=== PATIENT | female | born 1955 | race Caucasian/White ===

== ENCOUNTER 2016-11-30 20:16 | Emergency (ER) | payer BC ==
--- NOTE | 2016-11-30 23:18 | DIAGNOSTIC IMAGING REPORT ---
PROCEDURE: CT ABD/PELVIS WITH CONTRAST INDICATION: Left abdominal pain. History of cholecystectomy and hysterectomy. TECHNIQUE: 125 ml of Isovue 300 were injected intravenously and axial images were obtained of the entire abdomen and pelvis with sagittal and coronal reformations. COMPARISON: None. FINDINGS: ABDOMEN: Cholecystectomy (surgical clips). Liver, spleen, pancreas, kidneys, and aorta are normal. Bowel pattern is normal. Appendix is not clearly identified, but no evidence of inflammatory process. Mild degenerative changes of the lumbar spine. PELVIS: Moderate inflammatory changes of the upper sigmoid colon superimposed on moderate diverticulosis of. No evidence of fluid collection or abscess. Status post hysterectomy. IMPRESSION: 1. Moderate inflammatory changes of the upper sigmoid colon superimposed on moderate diverticulosis. Findings are most compatible with acute diverticulitis. 2. Status post cholecystectomy and hysterectomy. 3. Findings discussed with Dr. Reed Rhodes. All CT scans at this facility use dose modulation, iterative reconstruction, and/or weight-based dosing when appropriate to reduce radiation dose to as low as reasonably achievable.
--- NOTE | 2016-12-01 00:02 | ED CLINICAL REPORT ---
Clinical Report - Physicians/Mid Levels [facility] [address] [place] [address] 11/30/2016 20:21 Patient: RUFINO STEELE Time Seen: 21:11. Arrived- By private vehicle. Historian- patient. HISTORY OF PRESENT ILLNESS Chief Complaint: ABDOMINAL PAIN. It is described as stabbing and cramping and it is described as located in the left lower quadrant and radiating to the low back. At its maximum, severity described as 10 / 10. When seen in the E.D., severity described as 3 / 10. Modifying factors. Not worsened by anything. Not relieved by anything. This started several days ago and is still present. It was abrupt in onset and has been intermittent and waxing/waning. No nausea, loss of appetite, vomiting or diarrhea. No recent travel. Similar symptoms previously: None. REVIEW OF SYSTEMS Last bowel movement: today- "it was loose and grainy". She has had chills. No fever, sweats, calf pain, chest pain or cough. No difficulty breathing, pedal edema, palpitations, black stools or bloody stools. No constipation or urinary problems. She has had dizziness described as vertiginous in quality (chronically). All systems otherwise negative, except as recorded above. PAST HISTORY PCP - Vasyl. Problems: Hypercholesterolemia. Additional Surgeries: Cholecystectomy. Hysterectomy. Shoulder Surgery. Medications: Atorvastatin Calcium Oral. Allergies: Bactrim. Demerol. Penicillin. Sulfa Antibiotics. SOCIAL HISTORY Never smoker. No alcohol use or drug use. Residence: [place] Is a local resident. FAMILY HISTORY Diabetes in first-degree relative (mother, father and sibling); premature onset heart disease in first-degree relative (mother and sibling); cancer in first-degree relative (father and sibling). ADDITIONAL NOTES The nursing notes have been reviewed. PHYSICAL EXAM Vital Signs: 11/30/2016 21:10 BP: 136/60. HR: 79. RR: 16. O2 saturation: 99%. Temp: 98 F. Pain level now: 4/10. Have been reviewed. Appearance: Alert. Eyes: Pupils equal, round and reactive to light. ENT: Pharynx normal. Neck: Normal inspection. Neck supple. CVS: Normal heart rate and rhythm. Heart sounds normal. Respiratory: No respiratory distress. Breath sounds normal. Abdomen: Soft and nontender. Bowel sounds normal. No organomegaly. No mass. Back: Normal inspection. Skin: Skin warm and dry. Normal skin color. Normal skin turgor. Extremities: Extremities exhibit normal ROM. No calf tenderness. No lower extremity edema. LABS, X-RAYS, AND EKG Abdominal CT: IMPRESSION: 1. Moderate inflammatory changes of the upper sigmoid colon superimposed on moderate diverticulosis. Findings are most compatible with acute diverticulitis. 2. Status post cholecystectomy and hysterectomy. The study was interpreted contemporaneously by me and discussed with the radiologist. Laboratory Tests: UA-Culture if indicated: (BARBIE: 11/30/2016 21:15) ( MsgRcvd 11/30/2016 21:59) Final results Test Result Flag Units (Reference) URINE COLOR YELLOW URINE APPEARANCE CLEAR URINE GLUCOSE NEGATIVE (NEGATIVE) URINE BILIRUBIN NEGATIVE (NEGATIVE) URINE KETONE NEGATIVE (NEGATIVE) URINE SPECIFIC GRAVITY 1.020 (1.010-1.030) URINE PH 5.5 (5.0-8.0) URINE PROTEIN NEGATIVE (NEGATIVE) URINE UROBILINOGEN 0.2 EU/dL (0.2-1.0) URINE NITRITE NEGATIVE (NEGATIVE) URINE BLOOD TRACE-INTACT (NEGATIVE) URINE LEUK ESTERASE NEGATIVE (NEGATIVE) URINE RBC 1-3 rbc/hpf (0-1) URINE WBC 1-3 wbc/hpf (0-1) URINE EPITHELIAL CELLS 0-1 EPI/hpf (0-5) URINE BACTERIA TRACE (<1+) (NONE SEEN) URINE COMMENT CULT NOT INDICATED 1+ MUCOUSURINE CULTURES ARE SET-UP BASED ON THE FOLLOWING CRITERIA:POSITIVE NITRITEPOSITIVE LEUKOCYTE ESTERASEGREATER THAN 10 WHITE BLOOD CELLSMODERATE (2+) OR GREATER BACTERIA CBC w Diff: (BARBIE: 11/30/2016 21:20) ( AlgRcvd 11/30/2016 21:44) Final results Test Result Flag Units (Reference) WHITE BLOOD COUNT 11.6 H K/uL (4.5-11.5) RED BLOOD COUNT 4.44 M/uL (4.00-5.20) HEMOGLOBIN 13.0 gm/dL (12.0-16.0) HEMATOCRIT 39.5 % (36.0-46.0) MEAN CELL VOLUME 89 fL (80-100) MEAN CORPUSCULAR HGB 29 pg (26-34) MEAN CORPUSCULAR HGB CONC 33 g/dL (31-37) RED CELL DISTRIBUTION WIDTH 14.0 % (11.6-14.8) PLATELET COUNT 326 K/uL (150-400) NEUTROPHIL % 68.7 % (50-75) LYMPH % 23.0 L % (25-40) MONO % 6.2 % (3-14) EOSINOPHIL % 1.5 % (0-4) BASOPHIL % 0.6 % (0-2) CMP: (BARBIE: 11/30/2016 21:20) ( MsgRcvd 11/30/2016 21:50) Final results Test Result Flag Units (Reference) GLUCOSE 92 mg/dL (70-110) BUN 15 mg/dL (7-18) CREATININE 0.9 mg/dL (0.6-1.3) Estimated GFR >60 mL/min Estimated GFR- >60 mL/min Note: Persistent reduction over 3 months in eGFR<60 mL/min/1.73 m2 defines CKD. Patients with eGFR values>=60 mL/min/1.73 m2 may also have CKD if evidence ofpersistent proteinuria. Additional information may be foundat www.kidney.org. SODIUM 141 mmol/L (136-145) POTASSIUM 3.7 mmol/L (3.5-5.1) CHLORIDE 105 mmol/L (98-107) CARBON DIOXIDE 30 mmol/L (21-32) CALCIUM 9.2 mg/dL (8.5-10.1) TOTAL PROTEIN 7.7 g/dL (6.4-8.2) ALBUMIN 3.5 g/dL (3.3-5.0) BILIRUBIN, TOTAL 0.3 mg/dL (0.0-1.0) ALKALINE PHOSPHATASE 119 H U/L (46-116) AST (SGOT) 27 U/L (15-37) ALT (SGPT) 34 U/L (12-78) LIPASE 108 U/L (73-393) AMYLASE 64 U/L (25-115) . PROGRESS AND PROCEDURES Course of Care: Patient is stable. Patient/family counseled. Old medical records ordered. Old records unavailable. Disposition: Discharged. Condition: stable. CLINICAL IMPRESSION Acute diverticulitis. INSTRUCTIONS No driving or operating machinery while taking medication. Drink plenty of fluids. Warnings: Further evaluation is necessary. SEDATIVE MEDICATION: You were given sedative medication during your visit. Do not drive or operate dangerous machinery. GENERAL WARNINGS: Return or contact your physician immediately if your condition worsens or changes unexpectedly, if not improving as expected, or if other problems arise. Prescription Medications: Zofran 4 mg: Take 1 orally every six hours as needed for nausea/vomiting. Dispense ten (10). No refills. Substitution is permissible. Cipro 500 mg: take 1 tab orally every 12 hours for 10 days. Dispense twenty (20). No refills. Substitution is permissible. Flagyl 500 mg: Take 1 tablet orally every 8 hours for 10 days. No refill. Substitution is permissible Percocet 5 mg/325 mg: take 1 tablet orally every 6 hours as needed for pain. Dispense fifteen (15). No refills. Substitution is permissible. Follow-up: Follow up with your doctor Dr. Fallon tomorrow. Call for an appointment. Understanding of the discharge instructions verbalized by patient and family. (Electronically signed by Reed Rhodes MD 12/06/2016 2:21)
--- NOTE | 2016-12-01 00:02 | ED ORDER SUMMARY ---
..... Patient: RUFINO STEELE OrderSheet [facility] VisitID: [id number] [address] [place] [address] 61y, F Registration Date/Time: 11/30/2016 ORDER SHEET Weight: 87.5 kg Allergies: Bactrim, Penicillin, Sulfa Antibiotics, Demerol GENERAL ORDERS: CBC w Diff Urgent (21:12 11/30/2016 Socorro VELAZQUEZ) (Ack 21:14 SRedmsherman) (21:23 TBowen R.N.) CMP Urgent (21:11/30/2016 Socorro VELAZQUEZ) (Ack 21:14 SResapphire) (21:23 TBowen R.N.) UA-Culture if indicated Urgent (21:11/30/2016 Socorro VELAZQUEZ) (Ack 21:14 SResapphire) (21:23 TBowen R.N.) Amylase Urgent (21:11/30/2016 Socorro VELAZQUEZ) (Ack 21:14 SReamandeepond) (21:23 TBowen R.N.) Lipase Urgent (21:12 11/30/2016 Socorro VELAZQUEZ) (Ack 21:14 SReamandeepond) (21:23 TBowen R.N.) CT Abd/Pel w Cont (No) (See report) Urgent (22:03 11/30/2016 Socorro VELAZQUEZ) (Ack 22:16 SRedmsherman) (23:13 MCampbell) MEDICATION ORDERS: IV FLUIDS: IV Saline Lock (21:11/30/2016 Socorro VELAZQUEZ) (Ack 21:51 RCollier R.N.) IV NS : initial bolus 500 mL (1000 mL/hr), then 125 mL/hr for 4h (NOW); Urgent (22:02 11/30/2016 Socorro VELAZQUEZ) (22:22 TBowwill R.N.) Dilaudid IV 0.5 mg (HIGH ALERT MEDICATION, NOW) (22:02 11/30/2016 Socorro VELAZQUEZ) (22:22 TBowen R.N.) Zofran IV 4 mg (NOW) (22:02 11/30/2016 Socorro VELAZQUEZ) (22:22 TBowwill R.N.) Dilaudid IV 0.5 mg (HIGH ALERT MEDICATION, NOW) (23:45 11/30/2016 Socorro VELAZQUEZ) (23:52 TBowwill R.N.) Zofran IV 4 mg (NOW) (00:18 12/01/2016 Socorro VELAZQUEZ) (0:24 TBunique R.N.) ORDER SHEET NOTES: [Electronically signed by Mary Lal R.N. (00:35 12/01/2016)] [Electronically signed by Reed Rhodes MD (02:21 12/06/2016)] [Electronically locked/signed by Mary Lal R.N. (00:35 12/01/2016)]
--- NOTE | 2016-12-01 00:02 | ED NURSING NOTES ---
Clinical Report - Nurses [facility] [address] [place] [address] 11/30/2016 20:21 Patient: RUFINO STEELE TRIAGE Triage time 21:10. Acuity: LEVEL 3. Chief Complaint: ABDOMINAL PAIN. --21:13 TonyaB, R.N. 21:10 11/30/16. BP: 136/60. HR: 79. RR: 16. O2 saturation: 99%. Temp: 98 F. Pain level now: 11/20. --21:13 TonyaB, R.N. Weight: 87.5 kg. Height/Length: 60 inches. BMI: 37.7. --21:11 TonyaB, R.N. Medications Atorvastatin Calcium Oral. --21:25 TonyaB, R.N. Allergies Bactrim. --21:24 TonyaB, R.N. Penicillin. --21:24 TonyaB, R.N. Sulfa Antibiotics. --21:24 TonyaB, R.N. Demerol. --21:24 TonyaB, R.N. History Arrived by private vehicle. Historian: patient. Accompanied by family. This is a new problem and onset was gradual. (3 days ago). Last oral intake by patient was breakfast (8 hours ago). 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 PAST MEDICAL HX: Immunizations: up-to-date. The patient has had a hysterectomy. SOCIAL HX: Never smoker. No alcohol use or drug use. No recent travel. No infectious disease exposure. No known contact with a sick individual. SELF HARM ASSESSMENT: A self harm assessment was performed. The patient answered "no" to the question "Have you recently felt down, depressed, or hopeless?", "Have you noticed less interest or pleasure in doing things?", "Do you have thoughts of harming or killing yourself?", "Are you here because you tried to hurt yourself?", "Have you ever tried to hurt yourself before today?", "Have you recently had thoughts about harming or killing others?" and "Do you have any dangerous items in your possession?". FALL RISK ASSESSMENT: Fall risk assessment completed. No fall risk identified. NUTRITIONAL RISK ASSESSMENT: The nutritional risk assessment revealed no deficiencies. FUNCTIONAL ASSESSMENT: Functional assessment: no impairments noted. LEARNING NEEDS ASSESSMENT: The learning needs assessment revealed no barriers. SKIN INTEGRITY ASSESSMENT: Skin integrity risk assessment completed. No skin integrity risk identified. --: Mandi Queen PROBLEMS: Hypercholesterolemia. --: Dong Queen. ADDITIONAL SURGERIES: Cholecystectomy. Hysterectomy. Shoulder Surgery. --: Mandi Queen Interventions ID band on patient. To treatment room. --: Mandi Queen PHYSICAL ASSESSMENT Ambulatory to room. GENERAL / NEURO / PSYCH: Alert. Oriented X 4. Appears in no acute distress. HEENT: Mucous membranes are pink. RESPIRATORY: Respirations not labored. Breath sounds within normal limits. CVS: Normal sinus rhythm noted. Capillary refill less than 2 seconds. GI / : Abdomen soft. Guarding present in the left lower quadrant. Bowel sounds within normal limits. SKIN: Skin is warm and dry. --21:14 Mandi Queen NURSING PROGRESS NOTES Oxygen administered. Patient identifiers checked. Call light placed in reach. Side rails up x 1. Bed placed in lowest position. Brakes of bed on. --: Mandi Queen 11/30/2016 Site #1 started via IV in the right antecubital space with an 20g angiocath, with aseptic technique and good blood return; one attempt. Blood drawn: rainbow set. Labeled in the presence of the patient and sent to the lab. Saline lock flushed with 10 mL saline. --:24 Mandi Queen 22:11/30/2016 Started bag #1 1000 mL IV Fluids IV NS (Saline); at 999 mL/hr over 30 minute(s) via site #1 via IV pump. Allergies verified and confirmed 5 rights. IV patency established. IV site checked: no pain, redness, or swelling. IV flushed thoroughly pre- and post-medication administration. --: Mandi Queen 22:11/30/2016 Dilaudid (HYDROmorphone HCl PF) IVP 0.5 mg given. via site #1. Allergies verified, confirmed 5 rights and sedative warning given to the patient and patient's family. IV patency established. IV site checked: no pain, redness, or swelling. IV flushed thoroughly pre- and post-medication administration. IVP given by RN. --22:22 Mandi Queen 22:11/30/2016 Zofran (Ondansetron HCl) IVP 4 mg given over 2 minute(s) via site #1. Allergies verified and confirmed 5 rights. IV patency established. IV site checked: no pain, redness, or swelling. IV flushed thoroughly pre- and post-medication administration. IVP given by RN. --22:22 Mandi Queen 23:52 11/30/2016 Dilaudid (HYDROmorphone HCl PF) IVP 0.5 mg given. via site #1. Allergies verified, confirmed 5 rights and sedative warning given to the patient. IV patency established. IV site checked: no pain, redness, or swelling. IV flushed thoroughly pre- and post-medication administration. IVP given by RN. --23:52 Mandi Queen ( pt vomiting ,orders received and carried out). --00:25 Mandi Queen 00:12/01/2016 IV Fluids IV NS Discontinued: bag #1 completed upon discharge. Total amount infused: 1000 mL. IV patency established. IV site checked: no pain, redness, or swelling. IV flushed thoroughly. --00:35 Mandi Queen 00:24 12/01/2016 Zofran (Ondansetron HCl) IVP 4 mg given over 2 minute(s) via site #1. Allergies verified and confirmed 5 rights. IV patency established. IV site checked: no pain, redness, or swelling. IV flushed thoroughly pre- and post-medication administration. IVP given by RN. --00:24 Mandi Queen DISPOSITION / DISCHARGE 00:25 12/01/2016 Site #1 removed upon discharge. Catheter intact. Bandage applied. --00:25 Mandi Queen Condition at departure: improved. No learning barriers present. Discharge instructions provided and reviewed with the patient. Reviewed warnings (no driving). Reviewed medication(s) side effects, precautions, dosing and course information. Prescription(s) given to the patient. Follow up contact number with PCP. Patient verbalized understanding. Written instructions provided in Maldivian. No treatment instructions, referrals given to the patient, diet instructions, activity restrictions or note given. No stop smoking instructions. The patient was discharged by the physician. She was discharged home and accompanied by family. She left the Emergency Department ambulatory and via private vehicle. Family member driving. FALL RISK ASSESSMENT: Fall risk assessment completed. No fall risk identified. --00:26 Mandi Queen Departure time: 00:34. --00:34 Mandi Queen 00:34 12/01/16. BP: 126/72. HR: 68. RR: 16. O2 saturation: 99%. Temp: deferred. Pain level now: 0/10. --00:35 Mandi Queen Locked/Released at 12/01/2016 0:35 by Mandi Queen
--- NOTE | 2016-12-01 00:02 | ED ORDER SUMMARY ---
..... Patient: RUFINO STEELE OrderSheet [facility] VisitID: [id number] [address] [place] [address] 61y, F Registration Date/Time: 11/30/2016 ORDER SHEET Weight: 87.5 kg Allergies: Bactrim, Penicillin, Sulfa Antibiotics, Demerol GENERAL ORDERS: CBC w Diff Urgent (21:12 11/30/2016 Socorro VELAZQUEZ) (Ack 21:14 SRedmsherman) (21:23 TBowen R.N.) CMP Urgent (21:11/30/2016 Socorro VELAZQUEZ) (Ack 21:14 SResapphire) (21:23 TBowen R.N.) UA-Culture if indicated Urgent (21:11/30/2016 Socorro VELAZQUEZ) (Ack 21:14 SResapphire) (21:23 TBowen R.N.) Amylase Urgent (21:11/30/2016 Socorro VELAZQUEZ) (Ack 21:14 SReamandeepond) (21:23 TBowen R.N.) Lipase Urgent (21:12 11/30/2016 Socorro VELAZQUEZ) (Ack 21:14 SReamandeepond) (21:23 TBowen R.N.) CT Abd/Pel w Cont (No) (See report) Urgent (22:03 11/30/2016 Socorro VELAZQUEZ) (Ack 22:16 SRedmsherman) (23:13 MCampbell) MEDICATION ORDERS: IV FLUIDS: IV Saline Lock (21:11/30/2016 Socorro VELAZQUEZ) (Ack 21:51 RCollier R.N.) IV NS : initial bolus 500 mL (1000 mL/hr), then 125 mL/hr for 4h (NOW); Urgent (22:02 11/30/2016 Socorro VELAZQUEZ) (22:22 TBowwill R.N.) Dilaudid IV 0.5 mg (HIGH ALERT MEDICATION, NOW) (22:02 11/30/2016 Socorro VELAZQUEZ) (22:22 TBowen R.N.) Zofran IV 4 mg (NOW) (22:02 11/30/2016 Socorro VELAZQUEZ) (22:22 TBowwill R.N.) Dilaudid IV 0.5 mg (HIGH ALERT MEDICATION, NOW) (23:45 11/30/2016 Socorro VELAZQUEZ) (23:52 TBowwill R.N.) Zofran IV 4 mg (NOW) (00:18 12/01/2016 Socorro VELAZQUEZ) (0:24 TBunique R.N.) ORDER SHEET NOTES: [Electronically signed by Mary Lal R.N. (00:35 12/01/2016)] [Electronically signed by Reed Rhodes MD (02:21 12/06/2016)] [Electronically locked/signed by Mary Lal R.N. (00:35 12/01/2016)]
--- NOTE | 2016-12-06 02:21 | ED MAR SUMMARY ---
..... Medication Administration Record [facility] [address] [place] [address] Patient: RUFINO STEELE Visit ID: [id number] 61y, F Weight: 87.5 kg Height/Length: 60 in BMI: 37.7 ALLERGIES: Demerol, Sulfa Antibiotics, Penicillin, Bactrim Start 22:11/30/2016 Bret RDaysi., Stop 00:12/01/2016 Dong Queen. Medication Administered: IV NS (SALINE), Dose: IV Fluids over 30 minute(s), Rate: 999 mL/hr, Dispensed: 1000 mL bag, Site: #1 right AC. Medication Ordered: IV NS : initial bolus 500 mL (1000 mL/hr), then 125 mL/hr for 4h (NOW); Urgent. Given :11/30/2016 Dong Queen. Medication Administered: DILAUDID [IVP] (HYDROMORPHONE HCL PF), Dose: 0.5 mg IVP, Site: #1 right AC. Medication Ordered: Dilaudid IV 0.5 mg (HIGH ALERT MEDICATION, NOW). Given 11/30/2016 Dong Queen. Medication Administered: ZOFRAN [IVP] (ONDANSETRON HCL), Dose: 4 mg IVP over 2 minute(s), Site: #1 right AC. Medication Ordered: Zofran IV 4 mg (NOW). Given 23:52 11/30/2016 Dong Queen. Medication Administered: DILAUDID [IVP] (HYDROMORPHONE HCL PF), Dose: 0.5 mg IVP, Site: #1 right AC. Medication Ordered: Dilaudid IV 0.5 mg (HIGH ALERT MEDICATION, NOW). Given :12/01/2016 Antonia QueenN. Medication Administered: ZOFRAN [IVP] (ONDANSETRON HCL), Dose: 4 mg IVP over 2 minute(s), Site: #1 right AC. Medication Ordered: Zofran IV 4 mg (NOW).
--- NOTE | 2016-12-06 02:21 | ED DISCHARGE INSTRUCTIONS ---
Patient: RUFINO STEELE General Instructions [facility] VisitID: [id number] [place] [address] 61y, F Registration Date/Time: 11/30/2016 Acute diverticulitis. INSTRUCTIONS No driving or operating machinery while taking medication. Drink plenty of fluids. Warnings: Further evaluation is necessary. SEDATIVE MEDICATION: You were given sedative medication during your visit. Do not drive or operate dangerous machinery. GENERAL WARNINGS: Return or contact your physician immediately if your condition worsens or changes unexpectedly, if not improving as expected, or if other problems arise. Prescription Medications: Zofran 4 mg: Take 1 orally every six hours as needed for nausea/vomiting. Dispense ten (10). No refills. Substitution is permissible. Cipro 500 mg: take 1 tab orally every 12 hours for 10 days. Dispense twenty (20). No refills. Substitution is permissible. Flagyl 500 mg: Take 1 tablet orally every 8 hours for 10 days. No refill. Substitution is permissible Percocet 5 mg/325 mg: take 1 tablet orally every 6 hours as needed for pain. Dispense fifteen (15). No refills. Substitution is permissible. Follow-up: Follow up with your doctor Dr. Fallon tomorrow. Call for an appointment. Understanding of the discharge instructions verbalized by patient and family. ADDITIONAL INFORMATION Diverticulitis Some people develop pouches along the wall of the colon as they get older. The pouches,called diverticuli, usually cause no symptoms. If the pouches become blocked, an infection may occur known as diverticulitis. This causes lower abdominal pain and fever. If not treated, it can become a serious condition, causing an abscess to form inside the pouch. The abscess may block the instestinal tract even or rupture, spreading infection throughout the abdomen. When treatment is started early, oral antibiotics alone may be enough to cure diverticulitis. This method is tried first. However, if you do not improve or if your condition worsens while you are trying oral antibiotics, it will be necessary to admit you to the hospital for IV antibiotics. Severe cases may require surgery. Home care The following guidelines will help you care for your diverticulitis at home: During the acute illness, rest and follow a low-fiber diet: Foods to Include: flake cereal, mashed potatoes, pancakes, waffles, pasta, white bread, rice, applesauce, bananas, eggs, meat, fish, poultry, tofu, cooked vegetables. Take antibiotics exactly as directed. Do not miss any doses or stop taking the medication, even if you feel better. Monitor your temperature and report any rising temperature to your doctor. Preventing future attacks Once you have had an episode of diverticulitis, you are at risk of having a recurrence. After you have recovered from this episode, you may be able to reduce your risk by eating a high-fiber diet (2035 gm/day of fiber). This cleans out the colon pouches that already exist and prevent new ones from forming. Foods high in fiber includes fresh fruits and edible peelings, raw or lightly cooked vegetables, whole grain cereals and breads, dried beans and peas, bran. Follow-up care Follow up with your doctor as advised or sooner if you are not improving in the nexttwo days. When to seek medical care Get prompt medical attention if any of the following occur: Fever of 100.4F (38C) or higher, or as directed by your health care provider Repeated vomiting or swelling of the abdomen Weakness, dizziness, light-headedness Increasing abdominal pain that becomes severe or spreads to your back Pain that moves to the right lower abdomen Rectal bleeding (red, black or maroon color of the stools) Unexpected vaginal bleeding Ondansetron Oral disintegrating tablet What is this medicine? ONDANSETRON (on JOANNA se pastora) is used to treat nausea and vomiting caused by chemotherapy. It is also used to prevent or treat nausea and vomiting after surgery. How should I use this medicine? These tablets are made to dissolve in the mouth. Do not try to push the tablet through the foil backing. With dry hands, peel away the foil backing and gently remove the tablet. Place the tablet in the mouth and allow it to dissolve, then swallow. While you may take these tablets with water, it is not necessary to do so. Talk to your lumber trimmer regarding the use of this medicine in children. Special care may be needed. What side effects may I notice from receiving this medicine? Side effects that you should report to your doctor or health direct support professional caregiver as soon as possible: allergic reactions like skin rash, itching or hives, swelling of the face, lips, or tongue breathing problems dizziness fast or irregular heartbeat feeling faint or lightheaded, falls fever and chills swelling of the hands and feet tightness in the chest Side effects that usually do not require medical attention (report to your doctor or health direct support professional caregiver if they continue or are bothersome): constipation or diarrhea headache What may interact with this medicine? Do not take this medicine with any of the following medications: -apomorphine -cisapride -dofetilide -dronedarone -pimozide -thioridazine -ziprasidone This medicine may also interact with the following medications: -carbamazepine -phenytoin -rifampicin -tramadol -other medicines that prolong the QT interval (cause an abnormal heart rhythm) What if I miss a dose? If you miss a dose, take it as soon as you can. If it is almost time for your next dose, take only that dose. Do not take double or extra doses. Where should I keep my medicine? Keep out of the reach of children. Store between 2 and 30 degrees C (36 and 86 degrees F). Throw away any unused medicine after the expiration date. What should I tell my health care provider before I take this medicine? They need to know if you have any of these conditions: heart disease history of irregular heartbeat liver disease low levels of magnesium or potassium in the blood an unusual or allergic reaction to ondansetron, granisetron, other medicines, foods, dyes, or preservatives or trying to get breast-feeding What should I watch for while using this medicine? Check with your doctor or health direct support professional caregiver as soon as you can if you have any sign of an allergic reaction. Ciprofloxacin Hydrochloride Oral tablet What is this medicine? CIPROFLOXACIN (sip megan FLOX a sin) is a quinolone antibiotic. It is used to treat certain kinds of bacterial infections. It will not work for colds, flu, or other viral infections. How should I use this medicine? Take this medicine by mouth with a glass of water. Follow the directions on the prescription label. Take your medicine at regular intervals. Do not take your medicine more often than directed. Take all of your medicine as directed even if you think your are better. Do not skip doses or stop your medicine early. You can take this medicine with food or on an empty stomach. It can be taken with a meal that contains dairy or calcium, but do not take it alone with a dairy product, like milk or yogurt or calcium-fortified juice. A special MedGuide will be given to you by the pharmacist with each prescription and refill. Be sure to read this information carefully each time. Talk to your lumber trimmer regarding the use of this medicine in children. Special care may be needed. What side effects may I notice from receiving this medicine? Side effects that you should report to your doctor or health direct support professional caregiver as soon as possible: - allergic reactions like skin rash, itching or hives, swelling of the face, lips, or tongue - breathing problems - confusion, nightmares or hallucinations - feeling faint or lightheaded, falls - irregular heartbeat - joint, muscle or tendon pain or swelling - pain or trouble passing urine -persistent headache with or without blurred vision - redness, blistering, peeling or loosening of the skin, including inside the mouth - seizure - unusual pain, numbness, tingling, or weakness Side effects that usually do not require medical attention (report to your doctor or health direct support professional caregiver if they continue or are bothersome): - diarrhea - nausea or stomach upset - white patches or sores in the mouth What may interact with this medicine? Do not take this medicine with any of the following medications: cisapride droperidol terfenadine tizanidine This medicine may also interact with the following medications: antacids caffeine cyclosporin didanosine (ddI) buffered tablets or powder medicines for diabetes medicines for inflammation like ibuprofen, naproxen methotrexate multivitamins omeprazole phenytoin probenecid sucralfate theophylline warfarin What if I miss a dose? If you miss a dose, take it as soon as you can. If it is almost time for your next dose, take only that dose. Do not take double or extra doses. Where should I keep my medicine? Keep out of the reach of children. Store at room temperature below 30 degrees C (86 degrees F). Keep container tightly closed. Throw away any unused medicine after the expiration date. What should I tell my health care provider before I take this medicine? They need to know if you have any of these conditions: -bone problems -cerebral disease -joint problems -irregular heartbeat -kidney disease -liver disease -myasthenia gravis -seizure disorder -tendon problems -an unusual or allergic reaction to ciprofloxacin, other antibiotics or medicines, foods, dyes, or preservatives - or trying to get -breast-feeding What should I watch for while using this medicine? Tell your doctor or health direct support professional caregiver if your symptoms do not improve. Do not treat diarrhea with over the counter products. Contact your doctor if you have diarrhea that lasts more than 2 days or if it is severe and watery. You may get drowsy or dizzy. Do not drive, use machinery, or do anything that needs mental alertness until you know how this medicine affects you. Do not stand or sit up quickly, especially if you are an older patient. This reduces the risk of dizzy or fainting spells. This medicine can make you more sensitive to the sun. Keep out of the sun. If you cannot avoid being in the sun, wear protective clothing and use sunscreen. Do not use sun lamps or tanning beds/booths. Avoid antacids, aluminum, calcium, iron, magnesium, and zinc products for 6 hours before and 2 hours after taking a dose of this medicine. Metronidazole Oral tablet What is this medicine? METRONIDAZOLE ( troe NI da zole) is an antiinfective. It is used to treat certain kinds of bacterial and protozoal infections. It will not work for colds, flu, or other viral infections. How should I use this medicine? Take this medicine by mouth with a full glass of water. Follow the directions on the prescription label. Take your medicine at regular intervals. Do not take your medicine more often than directed. Take all of your medicine as directed even if you think you are better. Do not skip doses or stop your medicine early. Talk to your lumber trimmer regarding the use of this medicine in children. Special care may be needed. What side effects may I notice from receiving this medicine? Side effects that you should report to your doctor or health direct support professional caregiver as soon as possible: allergic reactions like skin rash or hives, swelling of the face, lips, or tongue confusion, clumsiness difficulty speaking discolored or sore mouth dizziness fever, infection numbness, tingling, pain or weakness in the hands or feet trouble passing urine or change in the amount of urine redness, blistering, peeling or loosening of the skin, including inside the mouth seizures unusually weak or tired vaginal irritation, dryness, or discharge Side effects that usually do not require medical attention (report to your doctor or health direct support professional caregiver if they continue or are bothersome): diarrhea headache irritability metallic taste nausea stomach pain or cramps trouble sleeping What may interact with this medicine? Do not take this medicine with any of the following medications: alcohol or any product that contains alcohol amprenavir oral solution cisapride disulfiram dofetilide dronedarone paclitaxel injection pimozide ritonavir oral solution sertraline oral solution sulfamethoxazole-trimethoprim injection thioridazine ziprasidone This medicine may also interact with the following medications: cimetidine lithium other medicines that prolong the QT interval (cause an abnormal heart rhythm) phenobarbital phenytoin warfarin What if I miss a dose? If you miss a dose, take it as soon as you can. If it is almost time for your next dose, take only that dose. Do not take double or extra doses. Where should I keep my medicine? Keep out of the reach of children. Store at room temperature below 25 degrees C (77 degrees F). Protect from light. Keep container tightly closed. Throw away any unused medicine after the expiration date. What should I tell my health care provider before I take this medicine? They need to know if you have any of these conditions: anemia or other blood disorders disease of the nervous system fungal or yeast infection if you drink alcohol containing drinks liver disease seizures an unusual or allergic reaction to metronidazole, or other medicines, foods, dyes, or preservatives or trying to get breast-feeding What should I watch for while using this medicine? Tell your doctor or health direct support professional caregiver if your symptoms do not improve or if they get worse. You may get drowsy or dizzy. Do not drive, use machinery, or do anything that needs mental alertness until you know how this medicine affects you. Do not stand or sit up quickly, especially if you are an older patient. This reduces the risk of dizzy or fainting spells. Avoid alcoholic drinks while you are taking this medicine and for three days afterward. Alcohol may make you feel dizzy, sick, or flushed. If you are being treated for a sexually transmitted disease, avoid sexual contact until you have finished your treatment. Your sexual partner may also need treatment. Oxycodone Hydrochloride, Acetaminophen Oral tablet What is this medicine? ACETAMINOPHEN; OXYCODONE (a set a ANJU kaylan fen; ox i KOLamont done) is a pain reliever. It is used to treat mild to moderate pain. How should I use this medicine? Take this medicine by mouth with a full glass of water. Follow the directions on the prescription label. Take your medicine at regular intervals. Do not take your medicine more often than directed. Talk to your lumber trimmer regarding the use of this medicine in children. Special care may be needed. Patients over 65 years old may have a stronger reaction and need a smaller dose. What side effects may I notice from receiving this medicine? Side effects that you should report to your doctor or health direct support professional caregiver as soon as possible: allergic reactions like skin rash, itching or hives, swelling of the face, lips, or tongue breathing difficulties, wheezing confusion light headedness or fainting spells severe stomach pain yellowing of the skin or the whites of the eyes Side effects that usually do not require medical attention (report to your doctor or health direct support professional caregiver if they continue or are bothersome): dizziness drowsiness nausea vomiting What may interact with this medicine? alcohol antihistamines barbiturates like amobarbital, butalbital, butabarbital, methohexital, pentobarbital, phenobarbital, thiopental, and secobarbital benztropine drugs for bladder problems like solifenacin, trospium, oxybutynin, tolterodine, hyoscyamine, and methscopolamine drugs for breathing problems like ipratropium and tiotropium drugs for certain stomach or intestine problems like propantheline, homatropine methylbromide, glycopyrrolate, atropine, belladonna, and dicyclomine general anesthetics like etomidate, ketamine, nitrous oxide, propofol, desflurane, enflurane, halothane, isoflurane, and sevoflurane medicines for depression, anxiety, or psychotic disturbances medicines for sleep muscle relaxants naltrexone narcotic medicines (opiates) for pain phenothiazines like perphenazine, thioridazine, chlorpromazine, mesoridazine, fluphenazine, prochlorperazine, promazine, and trifluoperazine scopolamine tramadol trihexyphenidyl What if I miss a dose? If you miss a dose, take it as soon as you can. If it is almost time for your next dose, take only that dose. Do not take double or extra doses. Where should I keep my medicine? Keep out of the reach of children. This medicine can be abused. Keep your medicine in a safe place to protect it from theft. Do not share this medicine with anyone. Selling or giving away this medicine is dangerous and against the law. Store at room temperature between 20 and 25 degrees C (68 and 77 degrees F). Keep container tightly closed. Protect from light. This medicine may cause accidental overdose and if it is taken by other adults, children, or pets. Flush any unused medicine down the toilet to reduce the chance of harm. Do not use the medicine after the expiration date. What should I tell my health care provider before I take this medicine? They need to know if you have any of these conditions: brain tumor Crohn's disease, inflammatory bowel disease, or ulcerative colitis drink more than 3 alcohol containing drinks per day drug abuse or addiction head injury heart or circulation problems kidney disease or problems going to the bathroom liver disease lung disease, asthma, or breathing problems an unusual or allergic reaction to acetaminophen, oxycodone, other opioid analgesics, other medicines, foods, dyes, or preservatives or trying to get breast-feeding What should I watch for while using this medicine? Tell your doctor or health direct support professional caregiver if your pain does not go away, if it gets worse, or if you have new or a different type of pain. You may develop tolerance to the medicine. Tolerance means that you will need a higher dose of the medication for pain relief. Tolerance is normal and is expected if you take this medicine for a long time. Do not suddenly stop taking your medicine because you may develop a severe reaction. Your body becomes used to the medicine. This does NOT mean you are addicted. Addiction is a behavior related to getting and using a drug for a non-medical reason. If you have pain, you have a medical reason to take pain medicine. Your doctor will tell you how much medicine to take. If your doctor wants you to stop the medicine, the dose will be slowly lowered over time to avoid any side effects. You may get drowsy or dizzy. Do not drive, use machinery, or do anything that needs mental alertness until you know how this medicine affects you. Do not stand or sit up quickly, especially if you are an older patient. This reduces the risk of dizzy or fainting spells. Alcohol may interfere with the effect of this medicine. Avoid alcoholic drinks. There are different types of narcotic medicines (opiates) for pain. If you take more than one type at the same time, you may have more side effects. Give your health care provider a list of all medicines you use. Your doctor will tell you how much medicine to take. Do not take more medicine than directed. Call emergency for help if you have problems breathing. The medicine will cause constipation. Try to have a bowel movement at least every 2 to 3 days. If you do not have a bowel movement for 3 days, call your doctor or health direct support professional caregiver. Do not take Tylenol (acetaminophen) or medicines that have acetaminophen with this medicine. Too much acetaminophen can be very dangerous. Many nonprescription medicines contain acetaminophen. Always read the labels carefully to avoid taking more acetaminophen. You have been given the following additional information: Diverticulitis Ondansetron Oral disintegrating tablet Ciprofloxacin Hydrochloride Oral tablet Metronidazole Oral tablet Oxycodone Hydrochloride, Acetaminophen Oral tablet No driving or operating machinery while taking medication. (Electronically signed by Reed Rhodes MD 12/06/2016 2:21)
--- NOTE | 2016-12-06 02:21 | ED MAR SUMMARY ---
..... Medication Administration Record [facility] [address] [place] [address] Patient: RUFINO STEELE Visit ID: [id number] 61y, F Weight: 87.5 kg Height/Length: 60 in BMI: 37.7 ALLERGIES: Demerol, Sulfa Antibiotics, Penicillin, Bactrim Start 22:11/30/2016 Bret RDaysi., Stop 00:12/01/2016 Dong Queen. Medication Administered: IV NS (SALINE), Dose: IV Fluids over 30 minute(s), Rate: 999 mL/hr, Dispensed: 1000 mL bag, Site: #1 right AC. Medication Ordered: IV NS : initial bolus 500 mL (1000 mL/hr), then 125 mL/hr for 4h (NOW); Urgent. Given :11/30/2016 Dong Queen. Medication Administered: DILAUDID [IVP] (HYDROMORPHONE HCL PF), Dose: 0.5 mg IVP, Site: #1 right AC. Medication Ordered: Dilaudid IV 0.5 mg (HIGH ALERT MEDICATION, NOW). Given 11/30/2016 Dong Queen. Medication Administered: ZOFRAN [IVP] (ONDANSETRON HCL), Dose: 4 mg IVP over 2 minute(s), Site: #1 right AC. Medication Ordered: Zofran IV 4 mg (NOW). Given 23:52 11/30/2016 Dong Queen. Medication Administered: DILAUDID [IVP] (HYDROMORPHONE HCL PF), Dose: 0.5 mg IVP, Site: #1 right AC. Medication Ordered: Dilaudid IV 0.5 mg (HIGH ALERT MEDICATION, NOW). Given :12/01/2016 Antonia QueenN. Medication Administered: ZOFRAN [IVP] (ONDANSETRON HCL), Dose: 4 mg IVP over 2 minute(s), Site: #1 right AC. Medication Ordered: Zofran IV 4 mg (NOW).
--- NOTE | 2016-12-06 02:21 | ED MED RECONCILIATION SUMMARY ---
Patient: RUFINO STEELE Medication Reconciliation Report [facility] VisitID: [id number] [address] [place] [address] 61y, F Registration Date/Time: 11/30/2016 Weight: 87.5 kg Height/Length: 60 in. BMI: 37.7 ALLERGIES: Bactrim, Demerol, Penicillin, Sulfa Antibiotics The patient's Home Medications are listed below: THE FOLLOWING MEDICATIONS NEED TO BE RECONCILED: Atorvastatin Calcium Oral The source(s) of the original Home Medication information: Not obtained. The following Medications were given to the patient in the Emergency Department: IV NS IV Fluids bolus 0, then 999 mL/hr, administered: 11/30/2016 10:22:00 PM Dilaudid [IVP] IVP 0.5 mg, administered: 11/30/2016 10:22:00 PM Zofran [IVP] IVP 4 mg, administered: 11/30/2016 10:22:00 PM Dilaudid [IVP] IVP 0.5 mg, administered: 11/30/2016 11:52:00 PM Zofran [IVP] IVP 4 mg, administered: 12/01/2016 12:24:00 AM The following Medications were prescribed to the patient: Zofran 4 mg: Take 1 orally every six hours as needed for nausea/vomiting. Dispense ten (10). No refills. Substitution is permissible. -- Reed Rhodes MD Cipro 500 mg: take 1 tab orally every 12 hours for 10 days. Dispense twenty (20). No refills. Substitution is permissible. -- Reed Rhodes MD Flagyl 500 mg: Take 1 tablet orally every 8 hours for 10 days. No refill. Substitution is permissible -- Reed Rhodes MD Percocet 5 mg/325 mg: take 1 tablet orally every 6 hours as needed for pain. Dispense fifteen (15). No refills. Substitution is permissible. -- Reed Rhodes MD
--- NOTE | 2016-12-06 02:21 | ED MED RECONCILIATION SUMMARY ---
Patient: RUFINO STEELE Medication Reconciliation Report [facility] VisitID: [id number] [address] [place] [address] 61y, F Registration Date/Time: 11/30/2016 Weight: 87.5 kg Height/Length: 60 in. BMI: 37.7 ALLERGIES: Bactrim, Demerol, Penicillin, Sulfa Antibiotics The patient's Home Medications are listed below: THE FOLLOWING MEDICATIONS NEED TO BE RECONCILED: Atorvastatin Calcium Oral The source(s) of the original Home Medication information: Not obtained. The following Medications were given to the patient in the Emergency Department: IV NS IV Fluids bolus 0, then 999 mL/hr, administered: 11/30/2016 10:22:00 PM Dilaudid [IVP] IVP 0.5 mg, administered: 11/30/2016 10:22:00 PM Zofran [IVP] IVP 4 mg, administered: 11/30/2016 10:22:00 PM Dilaudid [IVP] IVP 0.5 mg, administered: 11/30/2016 11:52:00 PM Zofran [IVP] IVP 4 mg, administered: 12/01/2016 12:24:00 AM The following Medications were prescribed to the patient: Zofran 4 mg: Take 1 orally every six hours as needed for nausea/vomiting. Dispense ten (10). No refills. Substitution is permissible. -- Reed Rhodes MD Cipro 500 mg: take 1 tab orally every 12 hours for 10 days. Dispense twenty (20). No refills. Substitution is permissible. -- Reed Rhodes MD Flagyl 500 mg: Take 1 tablet orally every 8 hours for 10 days. No refill. Substitution is permissible -- Reed Rhodes MD Percocet 5 mg/325 mg: take 1 tablet orally every 6 hours as needed for pain. Dispense fifteen (15). No refills. Substitution is permissible. -- Reed Rhodes MD
== END 2016-12-01 00:36 | disposition home or self-care (01) ==
LOC: ED SRH 20:16
DX: K57.92 Diverticulitis of intestine, part unspecified, without perforation or abscess without bleeding (principal); Z79.899 Other long term (current) drug therapy; Z88.0 Allergy status to penicillin; Z88.1 Allergy status to other antibiotic agents; Z88.5 Allergy status to narcotic agent; Z88.2 Allergy status to sulfonamides
CPT/HCPCS: 90004; 90100; 92235; 92530; 95059